=== PATIENT | female | born 1985 | race Caucasian/White ===

== ENCOUNTER → 2023-01-13 15:53 | Outpatient (CLI) | payer OTHER, SELFPAY ==
[2023-01-13 16:57] LABS: C-Reactive Protein Quant < 0.5 mg/dL (<1.0)
[2023-01-13 18:34] LABS: Erythrocyte Sedimentation Rate 6 MM/HR (0-20)
== END ==
PROVIDERS: Referring Provider Internal Medicine Cardiovascular Disease; Visit Provider Internal Medicine Cardiovascular Disease
DX: R07.9 Chest pain, unspecified (principal); R00.2 Palpitations; R07.89 Other chest pain; U07.1 COVID-19
CPT/HCPCS: 36415; 85651; 86140

== ENCOUNTER → 2024-02-08 18:32 | Outpatient (CLI) | payer OTHER, SELFPAY ==
--- NOTE | 2024-02-08 18:35 | DI.MRI.S_ITS ---
PROCEDURE: MR HIP RT WO CON INDICATIONS: PAIN IN RIGHT HIP TECHNIQUE: Noncontrast coronal T1 spin echo and STIR through the bony pelvis. Coronal and axial T2 fast spin echo with fat saturation, sagittal T1 spin echo, and oblique axial T2 fast spin echo with fat saturation through the hip. COMPARISON: None. FINDINGS: Image quality: Excellent. Bones and joints: There is no marrow edema. No intraosseous lesions or fractures. No avascular necrosis of the femoral heads. Degenerative disc disease at L5-S1 level is seen. Tendons and ligaments: Mild distal right gluteus medius and minimus tendinosis at their insertions on greater trochanter is seen. The nearby proximal iliotibial band also appears intact. The iliopsoas tendon appears intact, without adjacent bursal fluid collections or evidence for impingement syndrome. The origin of the hamstring tendon is intact at the ischial tuberosity, as well as the associated sacrotuberous ligament. The straight and reflected heads of the rectus femoris muscle origin appear intact, as well as the conjoint tendon. The ligamentum teres appears intact where visualized. Labrum and cartilage: There is subtle fraying of superior anterior right hip labrum at 12 to 1 o'clock position and show T2 hyperintense signal concerning for subtle superior anterior right hip labral tear. Cartilage surface of the femoral head appears of normal thickness. The alpha angle of the femur is within normal limits at less than 55 degrees. Soft tissues: Visualized muscles demonstrate normal bulk and internal signal. Quadratus femoris muscle demonstrates no internal edema to suggest ischiofemoral impingement. The proximal sciatic neurovascular bundle appears normal adjacent to the hamstring tendons. No free pelvic fluid. Bladder wall thickness is normal. Genitourinary structures and bowel loops appear normal where visualized. IMPRESSION: 1. No marrow edema. No hip fracture or dislocation. No evidence of avascular necrosis. Degenerative disc disease at L5-S1 level. 2. 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 3. Suggestion of subtle superior anterior right hip labral tear at 12 to 1 o'clock position. Dictated by: Jareth Hays M.D. on 02/09/2024 at 8:55 Approved by: Jareth Hays M.D. on 02/09/2024 at 9:07
== END ==
LOC: MRI 18:33
PROVIDERS: Referring Provider Nurse Practitioner Family; Visit Provider Nurse Practitioner Family
DX: M51.37 Other intervertebral disc degeneration, lumbosacral region (principal); M25.551 Pain in right hip
CPT/HCPCS: 73721